=== PATIENT | female | born 1945 | race Caucasian/White ===

== ENCOUNTER 2020-02-22 06:48 | Day surgery (SDC) | payer MEDICARE, OTHER ==
[~2020-02-22] VITALS: Ht 170.2 cm; Wt 67.3 kg
[2020-02-22 07:11] VITALS: BP 153/69; PULSE 87; TEMP 97.6
[2020-02-22] MEDS ORDERED: LANTUS100 U/ML SQ (07:15)
[2020-02-22] MEDS ORDERED: ASPIRIN 81M81 MG/TA2 PO (07:16)
[2020-02-22] MEDS ORDERED: PRINIVIL20 MG PO (07:17)
[2020-02-22] MEDS ORDERED: LIPITOR20 MG PO (07:18)
[2020-02-22 09:25] VITALS: BP 144/62; PULSE 71
--- NOTE | 2020-02-22 09:25 | NUR ---
Patient returns to [facility] per cart and transfers with two person assiste to recliner. Drowsy and encouraged to take deep breaths. IV fluids infusing and allowed to rest. Spouse in room. Call light in reach.
[2020-02-22 09:40] VITALS: BP 137/71; PULSE 69
--- NOTE | 2020-02-22 09:40 | NUR ---
Dr. Ruff here to talk with the patient and spouse. All questions answered. More awake. Given orange juice and vanilla pudding for snack.
[2020-02-22 09:55] VITALS: BP 137/87; PULSE 69
--- NOTE | 2020-02-22 09:55 | NUR ---
Tolerated juice and pudding. Denies difficulty swallowing of abdominal pain.
--- NOTE | 2020-02-22 10:00 | NUR ---
IV discontinued and site is free of redness or swelling. Spouse in room and both given dismissal instructions and voice understanding of these.
--- NOTE | 2020-02-22 10:05 | NUR ---
Patient is able to dress self with minimal assist.
--- NOTE | 2020-02-22 10:17 | NUR ---
Dismissed to home driven by spouse and taken to the front door per wheelchair and assisted into vehicle. Dismissal instructions in hand and provided office number for questions and concerns.
== END 2020-02-22 10:17 | disposition home or self-care (01) ==
LOC: SDCO 06:48
DX: D12.8 Benign neoplasm of rectum (principal); K64.4 Residual hemorrhoidal skin tags; K64.0 First degree hemorrhoids; R01.1 Cardiac murmur, unspecified; K52.9 Noninfective gastroenteritis and colitis, unspecified; K57.30 Diverticulosis of large intestine without perforation or abscess without bleeding; I85.00 Esophageal varices without bleeding; K76.6 Portal hypertension; E11.9 Type 2 diabetes mellitus without complications; E78.00 Pure hypercholesterolemia, unspecified; E87.5 Hyperkalemia; K31.89 Other diseases of stomach and duodenum; Z20.828 Contact with and (suspected) exposure to other viral communicable diseases; F17.210 Nicotine dependence, cigarettes, uncomplicated; Z79.4 Long term (current) use of insulin; Z79.82 Long term (current) use of aspirin; Z79.899 Other long term (current) drug therapy
CPT/HCPCS: J2704; J7030

== ENCOUNTER → 2021-07-19 | Outpatient (CLI) | payer MEDICARE, OTHER ==
[~2021-07-19] MED LIST: ASPIRIN 81M81 MG/TA2 PO; DICLOFENAC SOD2.5 ML TOP; LANTUS100 U/ML SQ; LIPITOR 40MG TA40 MG PO; LIPITOR20 MG PO; MAGNESIUM GLYCINATE; PRINIVIL20 MG PO; VITAMIN D3400 I1 PO
== END ==
LOC: COL.RAD 10:24
DX: K74.69 Other cirrhosis of liver (principal); K80.20 Calculus of gallbladder without cholecystitis without obstruction; I71.4 Abdominal aortic aneurysm, without rupture; R16.1 Splenomegaly, not elsewhere classified

== ENCOUNTER 2021-07-24 07:26 | Day surgery (SDC) | payer MEDICARE, OTHER ==
[~2021-07-24] VITALS: Ht 170.2 cm; Wt 68.2 kg
[~2021-07-24 07:26] MED LIST changes: -DICLOFENAC SOD2.5 ML TOP; -LIPITOR 40MG TA40 MG PO; -MAGNESIUM GLYCINATE; -VITAMIN D3400 I1 PO
[2021-07-24] MEDS ORDERED: LIPITOR 40MG TA40 MG PO (07:59)
[2021-07-24] MEDS ORDERED: DICLOFENAC SOD2.5 ML TOP (07:59)
[2021-07-24] MEDS ORDERED: MAGNESIUM GLYCINATE (08:01)
[2021-07-24] MEDS ORDERED: VITAMIN D3400 I1 PO (08:03)
[2021-07-24 08:09] VITALS: BP 164/88; PULSE 89; TEMP 98
[2021-07-24 09:35] VITALS: BP 152/73; PULSE 82; TEMP 97
[2021-07-24 09:50] VITALS: BP 147/114; PULSE 74
[2021-07-24 10:05] VITALS: BP 165/80; PULSE 73
--- NOTE | 2021-07-24 10:32 | NUR ---
0935 PT RETURNED TO [facility] VIA CART. ALERT AND ORIENTED. PT SOB AND HAS EXPIRATORY WHEEZING. MONITORS ATTACHED, INTERVALS AND ALARMS SET. PT O2 SATS 95% AND GREATER. PT STATES THIS IS NORMAL. COFFEE AND GRAMCRACKER PROVIDED. 0950 PT TOLERATING FOOR AND DRINK WELL. DENIES PAIN OR NAUSEA. 1005 PT AND STATE PT BP HAS BEEN ELEVEATED ALL WEEK ANTICIPATING PROCEDURE. ENCOURAGE PT TO SEE PCP IF BLOOD PRESSURE DOES NOT RETURN TO NORMAL RANGE. 1020 REVIEWED DISCHARGE INSTRUCTIONS AND EDUCATION MATERIAL, ANSWERED ALL QUESTIONS. PT ALLOWED TO DRESS 1032 PT TRANSFERED VIA WHEELCHAIR TO PERSONAL VEHICLE TO BE DRIVEN HOME BY .
== END 2021-07-24 10:32 | disposition home or self-care (01) ==
LOC: SDCO 07:26
DX: I85.01 Esophageal varices with bleeding (principal); K76.6 Portal hypertension; K74.60 Unspecified cirrhosis of liver; E11.9 Type 2 diabetes mellitus without complications; E78.5 Hyperlipidemia, unspecified; K31.89 Other diseases of stomach and duodenum; I10 Essential (primary) hypertension; F17.210 Nicotine dependence, cigarettes, uncomplicated; Z79.4 Long term (current) use of insulin; Z79.84 Long term (current) use of oral hypoglycemic drugs; Z79.899 Other long term (current) drug therapy
CPT/HCPCS: J2704; J7030

== ENCOUNTER 2023-11-03 07:10 | Day surgery (SDC) | payer MEDICARE, OTHER ==
[~2023-11-03] VITALS: Ht 170.2 cm; Wt 67.9 kg
[2023-11-03] VITALS (7 sets, daily range): BP systolic 122–162; BP diastolic 53–78; PULSE 75–82; TEMP 97.6–98.2
[~2023-11-03 07:10] MED LIST changes: +BACTRIM DS 8001 TAB PO; +DICLOFENAC SOD2.5 ML TOP; +LIPITOR 40MG TA40 MG PO; +LR 1,000 ML IV SCH; +MAGNESIUM GLYCINATE; +Ondansetron 4 MG/2 ML VIAL IV PRN; +PLAVIX 75MG TAB75 MG PO; +VITAMIN D3400 I1 PO
[2023-11-03] MEDS ORDERED: CRESTOR5 MG PO (07:59)
[2023-11-03] MEDS ORDERED: NOVOLOG FLEX100 U/ML SQ (08:04)
[2023-11-03] MEDS ORDERED: PRINIVIL10 MG PO (08:05)
[2023-11-03] MEDS ORDERED: METAMUCIL3.4 GM/DOS PO (08:05)
[2023-11-03] MEDS ORDERED: VITAMIN D31000 IU PO (08:06)
[2023-11-03] MEDS ORDERED: Lidocaine PF 2% (20 MG/ML) 5 ML VIAL ONE (08:45)
--- NOTE | 2023-11-03 09:10 | NUR ---
PATIENT AMBULATED TO CHAIR WITH STEADY GAIT, ASSIST OF 2. ALERT AND AWAKE. DENIES PAIN, NAUSEA AND SHORTNESS OF BREATH. BREATHING REGULAR AND UNLABORED ON ROOM AIR. SKIN WARM AND DRY. IV IN PLACE. NURSE HANDOFF COMPLETED IN ROOM. SEE CHART FOR VITAL SIGNS. PATIENT HAD WATER AND APPLESAUCE. BOTH TOLERATED WELL. CALL LIGHT IN REACH.
--- NOTE | 2023-11-03 10:28 | NUR ---
0936: DISCHARGE TEACHING COMPLETED WITH PRINTED EDUCATION AND INSTRUCTIONS SENT HOME WITH PATIENT. PATIENT VERBALIZED UNDERSTANDING OF TEACHING. MET WITH PATIENT AND SPOUSE IN ROOM TO DISCUSS PROCEDURE. 1019: IV REMOVED. GAUZE AND COBAN PLACED OVER SITE. 1028: PATIENT DISCHARGED HOME WITH GERMAINE TRANSPORT.
== END 2023-11-03 10:28 | disposition home or self-care (01) ==
LOC: SDCO 07:10
DX: K74.60 Unspecified cirrhosis of liver (principal); I85.10 Secondary esophageal varices without bleeding; K76.6 Portal hypertension; K31.89 Other diseases of stomach and duodenum; E11.9 Type 2 diabetes mellitus without complications; Z79.4 Long term (current) use of insulin; Z85.048 Personal history of other malignant neoplasm of rectum, rectosigmoid junction, and anus; F17.200 Nicotine dependence, unspecified, uncomplicated
CPT/HCPCS: J2704; J7120